=== PATIENT | male | born 1980 | race Caucasian/White ===

== ENCOUNTER 2017-10-02 15:35 | Emergency (ER) | payer MEDICAID, OTHER ==
[~2017-10-02] VITALS: Ht 175.3 cm; Wt 104.0 kg
[~2017-10-02 15:35] MED LIST: CYCL-1 PO
[2017-10-02 16:16] VITALS: BP 133/84
[2017-10-02] MEDS ORDERED: HYDR-569 PO (18:05)
== END 2017-10-02 18:25 | disposition home or self-care (01) ==
LOC: ER 15:35
DX: S63.501A Unspecified sprain of right wrist, initial encounter (principal); G89.29 Other chronic pain; F17.200 Nicotine dependence, unspecified, uncomplicated; Z79.899 Other long term (current) drug therapy; X50.1XXA Overexertion from prolonged static or awkward postures, initial encounter; Y93.89 Activity, other specified; Y92.89 Other specified places as the place of occurrence of the external cause; Y99.8 Other external cause status
CPT/HCPCS: 29125; 73110; 99284

== ENCOUNTER 2018-03-15 09:00 | Emergency (ER) | payer MEDICAID ==
[~2018-03-15] VITALS: Ht 175.3 cm; Wt 106.8 kg
[~2018-03-15 09:00] MED LIST changes: +CLON-529 PO; +HYDR-4383 PO; +LORA0.5T PO
[2018-03-15 10:41] VITALS: BP 128/78
[2018-03-15] MEDS ORDERED: ZOLP10TA5 PO (10:48)
== END 2018-03-15 10:45 | disposition home or self-care (01) ==
LOC: ER 09:01
DX: F11.10 Opioid abuse, uncomplicated (principal); G89.29 Other chronic pain; G47.00 Insomnia, unspecified; M54.9 Dorsalgia, unspecified
CPT/HCPCS: 99283

== ENCOUNTER 2019-11-05 11:27 | Emergency (ER) | payer MEDICAID ==
[~2019-11-05] VITALS: Ht 175.3 cm; Wt 104.9 kg
[~2019-11-05 11:27] MED LIST changes: -LORA0.5T PO
[2019-11-05] MEDS ORDERED: ondansetron/PF 4mg/2ml inj IV ONE (12:40)
[2019-11-05] MEDS ORDERED: pantoprazole 40 MG vial IV ONE (12:40)
[2019-11-05] MEDS ORDERED: normal saline 1000ML IV soln IVB ONE (12:40)
[2019-11-05 13:15] LABS: BASOPHILS % (AUTO) 0.4 % (0-1); EOSINOPHILS # (AUTO) 0.1 X10'3 (0-0.9); HEMATOCRIT 52.2 % (42.0-52.0); HEMOGLOBIN 17.7 g/dl (14.0-17.9); LYMPHOCYTES # (AUTO) 1.7 X10'3 (1.1-4.8); LYMPHOCYTES % (AUTO) 19.8 % (21-51); MEAN CORPUSCULAR HGB CONC 33.9 g/dL (33.0-36.5); MEAN CORPUSCULAR VOLUME 91.5 FL (78-98); MEAN PLATELET VOLUME 8.6 FL (7.4-10.4); MONOCYTES # (AUTO) 0.8 X10'3 (0-0.9); MONOCYTES % (AUTO) 8.7 % (2-12); NEUTROPHILS # (AUTO) 6.1 X10'3 (1.8-7.7); NEUTROPHILS % (AUTO) 70.1 % (42-75); PLATELET COUNT 264 X10'3 (140-440); RED BLOOD COUNT 5.71 X10'6 (4.70-6.10); RED CELL DISTRIBUTION WIDTH 13.1 % (11.5-14.5); WHITE BLOOD COUNT 8.7 X10'3 (4.5-11.0)
[2019-11-05 13:19] LABS: CLARITY,URINE CLEAR (Clear); COLOR,URINE YELLOW (Yellow); GLUCOSE, URINE NEGATIVE (Neg); KETONES,URINE NEGATIVE (Neg); LEUKOCYTE ESTERASE ,URINE NEGATIVE (Neg); NITRITES, URINE NEGATIVE (Neg); OCCULT BLOOD,URINE NEGATIVE (Neg); PH,URINE 6.5 (4.8-8.0); PROTEIN,URINE TRACE mg/dl (Neg); UROBILINOGEN,URINE 0.2 E.U/dL (0.2-1.0)
[2019-11-05 13:20] LABS: UA COLLECTION TYPE VOIDED
[2019-11-05 13:25] LABS: URINE AMPHETAMINE SCREEN NEGATIVE (Neg); URINE BARBITUATE SCREEN NEGATIVE (Neg); URINE BENZODIAZEPINES SCREEN NEGATIVE (Neg); URINE CANNABINOID SCREEN POSITIVE (Neg); URINE COCAINE SCREEN NEGATIVE (Neg); URINE METHADONE SCREEN NEGATIVE (Neg); URINE OPIATE SCREEN NEGATIVE (Neg); URINE PHENCYCLIDINE SCREEN NEGATIVE (Neg)
[2019-11-05 13:29] LABS: SQUAMOUS EPITHELIAL CELL,UR FEW /LPF (FEW)
[2019-11-05 13:30] LABS: PARTIAL THROMBOPLASTIN TIME 31 SECONDS (22-32)
[2019-11-05 13:31] LABS: BACTERIA,URINE FEW /HPF (Neg); RBC,URINE 0-2 /HPF (0-2); WBC,URINE 0-4 /HPF (0-4)
[2019-11-05 13:35] LABS: ALANINE AMINOTRANSFERASE 61 U/L (12-78); ALKALINE PHOSPHATASE 59 IU/L (46-116); ANION GAP 5 (8-16); ASPARTATE AMINO TRANSFERASE 33 U/L (10-37); BILIRUBIN,TOTAL 0.3 MG/DL (0.1-1.0); BLOOD UREA NITROGEN 16 MG/DL (7-18); BUN/CREATININE RATIO 17.2 (5.4-32.0); CALCIUM 9.1 MG/DL (8.5-10.1); CHLORIDE 103 MMOL/L (99-107); CREATININE 0.93 MG/DL (0.60-1.10); GLUCOSE 101 MG/DL (70-104); LIPASE 237 U/L (73-393); MAGNESIUM 1.6 MG/DL (1.5-2.4); PHOSPHORUS 2.8 MG/DL (2.3-4.5); POTASSIUM 4.1 MMOL/L (3.5-5.1); SODIUM 136 MMOL/L (135-145); TOTAL PROTEIN 7.9 G/DL (6.4-8.2); eGFR > 90 ML/MIN
[2019-11-05 13:36] LABS: ETHANOL < 0.010 GM/DL (0.0-0.010)
[2019-11-05] MEDS ORDERED: PANT-47 PO (14:28)
[2019-11-05] MEDS ORDERED: FLUT16SP2 BOTHNARES (14:28)
[2019-11-05 14:35] VITALS: BP 133/64
== END 2019-11-05 14:36 | disposition home or self-care (01) ==
LOC: ER 11:28
DX: K21.9 Gastro-esophageal reflux disease without esophagitis (principal); G89.29 Other chronic pain; F17.210 Nicotine dependence, cigarettes, uncomplicated; Z79.899 Other long term (current) drug therapy
CPT/HCPCS: 36415; 80053; 80305; 80320; 81001; 83690; 83735; 84100; 85025; 85610; 85730; 93005; 96361; 96374; 96375; 99284; C9113; J2405; J7030

== ENCOUNTER 2021-02-01 21:43 | Emergency (ER) | payer MEDICAID, OTHER ==
[~2021-02-01] VITALS: Ht 175.3 cm; Wt 104.5 kg
[~2021-02-01 21:43] MED LIST changes: +FLUT16SP2 BOTHNARES; +PANT-47 PO
[2021-02-01 22:00] VITALS: BP 162/93
[2021-02-02] MEDS ORDERED: normal saline 1000ml 1,000 ML IV ONE (01:45)
[2021-02-02 01:48] LABS: BASOPHILS # (AUTO) 0.1 X10'3 (0-0.2); BASOPHILS % (AUTO) 0.6 % (0-1); EOSINOPHILS # (AUTO) 0.1 X10'3 (0-0.9); EOSINOPHILS % (AUTO) 0.8 % (0-6); HEMATOCRIT 52.4 % (42.0-52.0); LYMPHOCYTES # (AUTO) 1.7 X10'3 (1.1-4.8); LYMPHOCYTES % (AUTO) 16.1 % (21-51); MEAN CORPUSCULAR HEMOGLOBIN 31.8 PG (27.0-31.0); MEAN CORPUSCULAR HGB CONC 34.4 g/dL (33.0-36.5); MEAN CORPUSCULAR VOLUME 92.5 FL (78-98); MONOCYTES % (AUTO) 9.5 % (2-12); NEUTROPHILS # (AUTO) 7.9 X10'3 (1.8-7.7); PLATELET COUNT 269 X10'3 (140-440); RED BLOOD COUNT 5.66 X10'6 (4.70-6.10); WHITE BLOOD COUNT 10.8 X10'3 (4.5-11.0)
[2021-02-02 02:01] LABS: ALANINE AMINOTRANSFERASE 131 U/L (12-78); ALKALINE PHOSPHATASE 75 IU/L (46-116); ANION GAP 12 (8-16); ASPARTATE AMINO TRANSFERASE 104 U/L (10-37); BILIRUBIN,TOTAL 0.7 MG/DL (0.1-1.0); BLOOD UREA NITROGEN 16 MG/DL (7-18); BUN/CREATININE RATIO 18.2 (5.4-32.0); CALCIUM 9.3 MG/DL (8.5-10.1); CHLORIDE 103 MMOL/L (99-107); CREATININE 0.88 MG/DL (0.60-1.10); GLUCOSE 102 MG/DL (70-104); POTASSIUM 3.9 MMOL/L (3.5-5.1); SODIUM 141 MMOL/L (135-145); TOTAL CARBON DIOXIDE 25.8 MMOL/L (24-32); TOTAL PROTEIN 7.9 G/DL (6.4-8.2); eGFR > 90 ML/MIN
[2021-02-02] MEDS ORDERED: SULF1TAB45 PO (02:59)
== END 2021-02-02 03:06 | disposition home or self-care (01) ==
LOC: ER 21:44
DX: R53.81 Other malaise (principal); Z20.822 Contact with and (suspected) exposure to COVID-19; R07.89 Other chest pain; R43.8 Other disturbances of smell and taste; R19.7 Diarrhea, unspecified; R53.1 Weakness; R11.0 Nausea; G89.29 Other chronic pain; F12.90 Cannabis use, unspecified, uncomplicated; F11.90 Opioid use, unspecified, uncomplicated; Z72.89 Other problems related to lifestyle; Z79.899 Other long term (current) drug therapy; Z79.2 Long term (current) use of antibiotics
CPT/HCPCS: 36415; 71045; 80053; 83880; 84484; 85025; 87635; 93005; 99285; C9803; J7030

== ENCOUNTER 2021-03-31 15:32 | Emergency (ER) | payer MEDICAID ==
[~2021-03-31] VITALS: Ht 175.3 cm; Wt 96.8 kg
[2021-03-31] MEDS ORDERED: folic acid 1mg tablet PO ONE (16:55)
[2021-03-31] MEDS ORDERED: ondansetron 4mg rapidly disintigrating tab PO ONE (16:55)
[2021-03-31] MEDS ORDERED: thiamine 100mg tablet PO ONE (16:55)
[2021-03-31] MEDS ORDERED: magnesium oxide 400mg tablet PO ONE (16:55)
[2021-03-31] MEDS ORDERED: diazepam 5mg tablet PO ONE (16:55)
[2021-03-31 17:00] LABS: ALANINE AMINOTRANSFERASE 165 U/L (12-78); ALBUMIN 3.7 G/DL (3.4-5.0); ALBUMIN/GLOBULIN RATIO 0.9 (1.1-1.5); ALKALINE PHOSPHATASE 62 IU/L (46-116); AMYLASE 39 U/L (25-115); ANION GAP 20 (8-16); ASPARTATE AMINO TRANSFERASE 192 U/L (10-37); BASOPHILS % (AUTO) 0.3 % (0-1); BILIRUBIN,TOTAL 0.7 MG/DL (0.1-1.0); BLOOD UREA NITROGEN 11 MG/DL (7-18); BUN/CREATININE RATIO 14.1 (5.4-32.0); CALCIUM 8.7 MG/DL (8.5-10.1); CHLORIDE 97 MMOL/L (99-107); CREATININE 0.78 MG/DL (0.60-1.10); EOSINOPHILS # (AUTO) 0.1 X10'3 (0-0.9); EOSINOPHILS % (AUTO) 0.6 % (0-6); GLUCOSE 73 MG/DL (70-104); HEMATOCRIT 54.2 % (42.0-52.0); LIPASE 216 U/L (73-393); LYMPHOCYTES # (AUTO) 0.9 X10'3 (1.1-4.8); LYMPHOCYTES % (AUTO) 9.4 % (21-51); MEAN CORPUSCULAR HEMOGLOBIN 32.2 PG (27.0-31.0); MEAN CORPUSCULAR HGB CONC 33.9 g/dL (33.0-36.5); MEAN PLATELET VOLUME 9.2 FL (7.4-10.4); MONOCYTES # (AUTO) 0.6 X10'3 (0-0.9); MONOCYTES % (AUTO) 6.6 % (2-12); NEUTROPHILS % (AUTO) 83.1 % (42-75); PLATELET COUNT 281 X10'3 (140-440); POTASSIUM 3.8 MMOL/L (3.5-5.1); RED BLOOD COUNT 5.71 X10'6 (4.70-6.10); RED CELL DISTRIBUTION WIDTH 14.7 % (11.5-14.5); SODIUM 135 MMOL/L (135-145); TOTAL CARBON DIOXIDE 18.4 MMOL/L (24-32); TOTAL PROTEIN 7.7 G/DL (6.4-8.2); WHITE BLOOD COUNT 9.7 X10'3 (4.5-11.0); eGFR > 90 ML/MIN
[2021-03-31 17:02] LABS: HEMOGLOBIN 18.4 g/dl (14.0-17.9)
[2021-03-31] MEDS ORDERED: ondansetron/PF 4mg/2ml inj IV ONE (17:25)
[2021-03-31 17:36] LABS: ETHANOL < 0.010 GM/DL (0.0-0.010); MAGNESIUM 1.6 MG/DL (1.5-2.4)
[2021-03-31] MEDS ORDERED: normal saline 1000ML IV soln IVB ONE (17:45)
[2021-03-31] MEDS ORDERED: dextrose 5%-normal saline 1,000 ML IV ONE (17:45)
[2021-03-31 17:57] LABS: CLARITY,URINE CLEAR (Clear); COLOR,URINE YELLOW (Yellow); GLUCOSE, URINE NEGATIVE (Neg); KETONES,URINE >=80 mg/dl (Neg); LEUKOCYTE ESTERASE ,URINE NEGATIVE (Neg); NITRITES, URINE NEGATIVE (Neg); OCCULT BLOOD,URINE TRACE-INTACT (Neg); PH,URINE 5.5 (4.8-8.0); PROTEIN,URINE 30 mg/dl (Neg); UROBILINOGEN,URINE 0.2 E.U/dL (0.2-1.0)
[2021-03-31 18:02] LABS: UA COLLECTION TYPE NON-SPECIFIED
[2021-03-31 18:04] LABS: MUCUS STRANDS FEW /LPF (Neg); SQUAMOUS EPITHELIAL CELL,UR FEW /LPF (FEW)
[2021-03-31 18:06] LABS: BACTERIA,URINE NONE SEEN /HPF (Neg); RBC,URINE 0-2 /HPF (0-2); WBC,URINE 0-4 /HPF (0-4)
[2021-03-31 18:09] LABS: URINE AMPHETAMINE SCREEN NEGATIVE (Neg); URINE BARBITUATE SCREEN NEGATIVE (Neg); URINE BENZODIAZEPINES SCREEN NEGATIVE (Neg); URINE CANNABINOID SCREEN POSITIVE (Neg); URINE COCAINE SCREEN NEGATIVE (Neg); URINE METHADONE SCREEN NEGATIVE (Neg); URINE OPIATE SCREEN POSITIVE (Neg); URINE PHENCYCLIDINE SCREEN NEGATIVE (Neg)
[2021-03-31] MEDS ORDERED: CHLO25CA10 PO (19:42)
[2021-03-31] MEDS ORDERED: PROM12.512 PO (19:42)
[2021-03-31 20:16] VITALS: BP 182/116
== END 2021-03-31 20:18 | disposition home or self-care (01) ==
LOC: ER 15:33
DX: K29.20 Alcoholic gastritis without bleeding (principal); G89.29 Other chronic pain; M54.9 Dorsalgia, unspecified; F17.210 Nicotine dependence, cigarettes, uncomplicated; F12.10 Cannabis abuse, uncomplicated
CPT/HCPCS: 36415; 80053; 80305; 80320; 81001; 82150; 83690; 83735; 84484; 85025; 93005; 96361; 96374; 99284; J2405; J7030

== ENCOUNTER 2021-04-21 12:17 | Emergency (ER) | payer MEDICAID ==
[~2021-04-21] VITALS: Ht 175.3 cm; Wt 105.0 kg
[~2021-04-21 12:17] MED LIST changes: +CHLO25CA10 PO; +PROM12.512 PO
[2021-04-21 12:55] LABS: BASOPHILS % (AUTO) 0.6 % (0-1); EOSINOPHILS # (AUTO) 0.4 X10'3 (0-0.9); EOSINOPHILS % (AUTO) 5.4 % (0-6); HEMATOCRIT 53.2 % (42.0-52.0); HEMOGLOBIN 17.9 g/dl (14.0-17.9); LYMPHOCYTES # (AUTO) 1.7 X10'3 (1.1-4.8); LYMPHOCYTES % (AUTO) 22.6 % (21-51); MEAN CORPUSCULAR HEMOGLOBIN 32.2 PG (27.0-31.0); MEAN CORPUSCULAR HGB CONC 33.6 g/dL (33.0-36.5); MEAN CORPUSCULAR VOLUME 95.8 FL (78-98); MEAN PLATELET VOLUME 9.2 FL (7.4-10.4); MONOCYTES # (AUTO) 0.6 X10'3 (0-0.9); MONOCYTES % (AUTO) 8.7 % (2-12); NEUTROPHILS # (AUTO) 4.7 X10'3 (1.8-7.7); NEUTROPHILS % (AUTO) 62.7 % (42-75); PLATELET COUNT 314 X10'3 (140-440); RED BLOOD COUNT 5.55 X10'6 (4.70-6.10); RED CELL DISTRIBUTION WIDTH 14.3 % (11.5-14.5); WHITE BLOOD COUNT 7.5 X10'3 (4.5-11.0)
[2021-04-21 13:12] LABS: CLARITY,URINE CLEAR (Clear); COLOR,URINE YELLOW (Yellow); GLUCOSE, URINE NEGATIVE (Neg); KETONES,URINE 15 mg/dl (Neg); LEUKOCYTE ESTERASE ,URINE NEGATIVE (Neg); NITRITES, URINE NEGATIVE (Neg); OCCULT BLOOD,URINE NEGATIVE (Neg); PH,URINE 6.5 (4.8-8.0); PROTEIN,URINE TRACE mg/dl (Neg); UROBILINOGEN,URINE 0.2 E.U/dL (0.2-1.0)
[2021-04-21 13:17] LABS: UA COLLECTION TYPE VOIDED
[2021-04-21 13:18] LABS: MUCUS STRANDS MODERATE /LPF (Neg); SQUAMOUS EPITHELIAL CELL,UR FEW /LPF (FEW)
[2021-04-21 13:20] LABS: ALANINE AMINOTRANSFERASE 49 U/L (12-78); ALBUMIN 3.3 G/DL (3.4-5.0); ALBUMIN/GLOBULIN RATIO 0.8 (1.1-1.5); ALKALINE PHOSPHATASE 67 IU/L (46-116); ASPARTATE AMINO TRANSFERASE 44 U/L (10-37); BILIRUBIN,TOTAL 0.3 MG/DL (0.1-1.0); BLOOD UREA NITROGEN 11 MG/DL (7-18); BUN/CREATININE RATIO 19.6 (5.4-32.0); CALCIUM 8.8 MG/DL (8.5-10.1); CREATININE 0.56 MG/DL (0.60-1.10); GLUCOSE 100 MG/DL (70-104); LIPASE 172 U/L (73-393); TOTAL CARBON DIOXIDE 24.1 MMOL/L (24-32); TOTAL PROTEIN 7.6 G/DL (6.4-8.2); eGFR > 90 ML/MIN
[2021-04-21 13:22] LABS: BACTERIA,URINE FEW /HPF (Neg); WBC,URINE 0-4 /HPF (0-4)
[2021-04-21] MEDS ORDERED: ondansetron 4mg rapidly disintigrating tab PO ONE (13:35)
[2021-04-21] MEDS ORDERED: morphine 5 MG/ML injection IM ONE (13:35)
[2021-04-21] MEDS ORDERED: normal saline 1000ML IV soln IVB ONE (14:10)
[2021-04-21] MEDS ORDERED: morphine 4 MG/ML inj SYRINge IV ONE (14:20)
[2021-04-21] MEDS ORDERED: famotidine/PF 10 mg/ml inj IV ONE (14:25)
[2021-04-21] MEDS ORDERED: OMEP40CA21 PO (15:37)
[2021-04-21 16:44] VITALS: BP 147/97
[2021-04-21] MEDS ORDERED: famotidine/PF IV inj 20 MG in normal saline 100ml IV soln 100 ML IV SCH (20:00)
[2021-04-22 08:54] LABS: POTASSIUM 4.3 MMOL/L (3.3-5.1)
[2021-04-22 15:30] LABS: ANION GAP 9 (8-16); CHLORIDE 108 MMOL/L (99-107); POTASSIUM 4.3 MMOL/L (3.5-5.1); SODIUM 141 MMOL/L (135-145)
== END 2021-04-21 16:53 | disposition home or self-care (01) ==
LOC: ER 12:18
DX: K29.20 Alcoholic gastritis without bleeding (principal); R10.84 Generalized abdominal pain; R11.0 Nausea; F12.90 Cannabis use, unspecified, uncomplicated; Z72.89 Other problems related to lifestyle; Z79.899 Other long term (current) drug therapy
CPT/HCPCS: 36415; 76700; 80051; 80053; 81001; 83690; 85025; 96361; 96374; 96375; 99284; J2270; J3490; J7030

== ENCOUNTER 2021-11-06 18:38 | Emergency (ER) | payer MEDICAID ==
[~2021-11-06] VITALS: Ht 175.3 cm; Wt 92.7 kg
[2021-11-06 20:48] VITALS: BP 149/91
[2021-11-06] MEDS ORDERED: OMEP20CA16 PO (20:49)
[2021-11-06 21:51] LABS: BASOPHILS % (AUTO) 0.5 % (0-1); EOSINOPHILS # (AUTO) 0.1 X10'3 (0-0.9); EOSINOPHILS % (AUTO) 1.6 % (0-6); LYMPHOCYTES % (AUTO) 22.8 % (21-51); MEAN CORPUSCULAR HEMOGLOBIN 32.9 PG (27.0-31.0); MEAN CORPUSCULAR HGB CONC 34.1 g/dL (33.0-36.5); MEAN CORPUSCULAR VOLUME 96.5 FL (78-98); MONOCYTES # (AUTO) 1.3 X10'3 (0-0.9); MONOCYTES % (AUTO) 14.8 % (2-12); NEUTROPHILS # (AUTO) 5.2 X10'3 (1.8-7.7); NEUTROPHILS % (AUTO) 60.3 % (42-75); PLATELET COUNT 272 X10'3 (140-440); RED BLOOD COUNT 4.87 X10'6 (4.70-6.10); RED CELL DISTRIBUTION WIDTH 13.8 % (11.5-14.5); WHITE BLOOD COUNT 8.7 X10'3 (4.5-11.0)
[2021-11-06 22:07] LABS: ALANINE AMINOTRANSFERASE 46 U/L (12-78); ALBUMIN 3.6 G/DL (3.4-5.0); ALBUMIN/GLOBULIN RATIO 1.1 (1.1-1.5); ALKALINE PHOSPHATASE 47 IU/L (46-116); ANION GAP 6 (8-16); ASPARTATE AMINO TRANSFERASE 55 U/L (10-37); BILIRUBIN,TOTAL 0.4 MG/DL (0.1-1.0); BLOOD UREA NITROGEN 9 MG/DL (7-18); BUN/CREATININE RATIO 11.4 (5.4-32.0); CALCIUM 8.4 MG/DL (8.5-10.1); CHLORIDE 104 MMOL/L (99-107); CREATININE 0.79 MG/DL (0.60-1.10); GLUCOSE 79 MG/DL (70-104); POTASSIUM 4.2 MMOL/L (3.5-5.1); SODIUM 139 MMOL/L (135-145); TOTAL CARBON DIOXIDE 28.9 MMOL/L (24-32); TOTAL PROTEIN 6.9 G/DL (6.4-8.2); eGFR > 90 ML/MIN
[2021-11-06 22:09] LABS: CLARITY,URINE CLEAR (Clear); COLOR,URINE YELLOW (Yellow); GLUCOSE, URINE NEGATIVE (Neg); KETONES,URINE 15 mg/dl (Neg); LEUKOCYTE ESTERASE ,URINE NEGATIVE (Neg); NITRITES, URINE NEGATIVE (Neg); OCCULT BLOOD,URINE NEGATIVE (Neg); PROTEIN,URINE NEGATIVE (Neg); UA COLLECTION TYPE NON-SPECIFIED; UROBILINOGEN,URINE 0.2 E.U/dL (0.2-1.0)
[2021-11-06 22:14] LABS: URINE AMPHETAMINE SCREEN NEGATIVE (Neg); URINE BARBITUATE SCREEN NEGATIVE (Neg); URINE BENZODIAZEPINES SCREEN NEGATIVE (Neg); URINE CANNABINOID SCREEN POSITIVE (Neg); URINE COCAINE SCREEN NEGATIVE (Neg); URINE METHADONE SCREEN NEGATIVE (Neg); URINE OPIATE SCREEN POSITIVE (Neg); URINE PHENCYCLIDINE SCREEN NEGATIVE (Neg)
[2021-11-06 22:16] LABS: ETHANOL < 0.010 GM/DL (0.0-0.010)
== END 2021-11-06 22:50 | disposition home or self-care (01) ==
LOC: ER 18:38
DX: F10.10 Alcohol abuse, uncomplicated (principal); R53.83 Other fatigue; R10.9 Unspecified abdominal pain; F17.200 Nicotine dependence, unspecified, uncomplicated; Y90.9 Presence of alcohol in blood, level not specified
CPT/HCPCS: 36415; 71045; 74176; 80053; 80305; 80320; 81003; 83735; 85025; 93005; 99285

== ENCOUNTER 2021-11-08 14:53 | Emergency (ER) | payer MEDICAID ==
[~2021-11-08] VITALS: Ht 175.3 cm; Wt 92.3 kg
[~2021-11-08 14:53] MED LIST changes: -CHLO25CA10 PO; -CLON-529 PO; -CYCL-1 PO; -FLUT16SP2 BOTHNARES; -HYDR-4383 PO; +OMEP20CA16 PO; -PANT-47 PO; -PROM12.512 PO
[2021-11-08 15:38] VITALS: BP 151/93
--- NOTE | 2021-11-08 16:10 | NUR ---
PT DENIES THOUGHTS OF HARMING SELF OR OTHERS
[2021-11-08] MEDS ORDERED: ALBU8.5H17 IH ×2 (20:18)
[2021-11-08] MEDS ORDERED: PRED20TA PO ×2 (20:18)
[2021-11-08] MEDS ORDERED: LORazepam 1 MG tablet PO ONE (21:10)
[2021-11-08] MEDS ORDERED: LORA-269 PO (21:18)
== END 2021-11-08 21:37 | disposition home or self-care (01) ==
LOC: ER 14:54
DX: F41.9 Anxiety disorder, unspecified (principal); G89.29 Other chronic pain; M54.9 Dorsalgia, unspecified; F12.10 Cannabis abuse, uncomplicated; Z79.899 Other long term (current) drug therapy
CPT/HCPCS: 99283

== ENCOUNTER 2024-07-13 | Emergency (ER) | payer MEDICAID ==
[~2024-07-13] VITALS: Ht 175.3 cm; Wt 88.0 kg
[~2024-07-13] MED LIST changes: +LORA-269 PO
[2024-07-13 00:25] VITALS: TEMP 97.7
[2024-07-13 04:15] VITALS: BP 104/61; PULSE 77; O2SAT 96
[2024-07-13] MEDS ORDERED: HYDR-3965 PO (04:59)
[2024-07-13 05:01] VITALS: RESP 15
[2024-07-13] MEDS: HYDROcodone/acetaminophen 5mg/325mg tablet PO ONE (05:01)
[2024-07-13] MEDS: ketorolac trometh 15mg/ml vial 15 MG/ML ML IV ONE (05:01)
--- NOTE | 2024-07-13 05:01 | Physician Documentation ---
History of Present Illness ~ Chief Complaint: Back Pain Stated Complaint: BACK PAIN Time Seen by MD: 04:27 Primary Medical Doctor: edwina walk-in Mode of Arrival: EMS HPI Patient presents to the emergency room for evaluation of acute on chronic back pain. Patient has history of back problems including compression fractures. He has had imaging performed this last month which shows that he does have worsening compression fracture. He states he has been referred to surgery as we ll as pain specialist however over the past couple of days his pain has worsened and he is sleeping on the floor and generally being miserable. No fevers no bladder or bowel incontinence Medication Reconciliation Allergies: Coded Allergies: No Known Allergies (Unverified , 11/08/21) Scheduled Lorazepam (Ativan), 1 TAB PO Q8H Omeprazole (Omeprazole), 1 CAP PO DAILY, (Reported) Past Medical History Past Medical History: Chronic Back Pain Past Surgical History: noncontributory Alcohol Use: Alcoholic Drug Use: marijuana Lives In: Home Occupation: employed Review of Systems ROS All review of systems negative except as per HPI Physical Exam Physical Exam Vital Signs: Temperature: 97.7, Source: Oral, Heart Rate: 77, Respiratory Rate: 15, BP: 104/61, Pulse Oximetry: 96, Weight: 88.000 Oxygen Flow Rate: 0 Physical Exam General: Patient is awake, alert, oriented x4 in no acute distress Head: Normocephalic and atraumatic. Eyes: Conjunctival normal. EOMI. PERRL. ENT: Mucous membranes moist. Neck: Supple, trachea is midline. Chest: Clear to auscultation bilaterally without rales, rhonchi, or wheezes. There is no accessory muscle use or retractions. Cardiac: RRR without murmurs, gallops, or rubs. Back: Mid back tenderness to palpation with no step-offs. Progress Results/Orders Results/Orders Orders - CHIDI TREVINO MD Ketorolac Trometh 15mg/Ml Vial (Toradol (07/13/24 04:55) Vital Signs 07/13/24 07/13/24 07/13/24 07/13/24 00:16 00:25 01:05 01:30 Temp 97.7 97.7 Pulse 91 95 82 Resp 17 14 13 15 B/P (MAP) 110/63 110/63 (79) 100/55 (70) Pulse Ox 95 94 96 O2 Flow Rate 0 0 0 07/13/24 07/13/24 07/13/24 02:35 03:30 04:15 Pulse 90 84 77 Resp 14 16 15 B/P (MAP) 108/61 (77) 101/65 (77) 104/61 (75) Pulse Ox 94 94 96 O2 Flow Rate 0 0 0 Medical Decision Making Findings Patient presents to the emergency room with acute on chronic back pain. D ifferentials include but are not limited to worsening compression fracture, muscle spasm, kidney stone, aortic pathology, spinal abscess. No fevers and given patient's history do not feel he requires imaging of his spine. We will treat him for acute on chronic back pain. Departure Disposition: HOME / SELF CARE / HOMELESS Impression: Primary Impression: Back problem Condition: Stable Discharge Instructions: Acute Back Pain, Adult Additional Instructions: Continue to follow up with pain management doctors well as your surgical referral. Referrals: NO PRIMARY CARE PROVIDER (PCP) Prescriptions Hydrocodone Bit/Acetaminophen 5/325 MG ([place] 5/325 MG) 5 Mg/325 Mg Tablet 1 TAB PO Q4-6 hours PRN for pain, #10 TAB Prov: CHIDI TREVINO MD 07/13/24 Education Educated: Patient Educated regarding: diagnosis, treatment, need for follow up Signature Scribe Signature: No scribe Attestation: The note accurately reflects work and decisions made by me.Chidi Trevino MD 07/13/24 05:00 CHIDI TREVINO MD July 13, 2024 05:00
== END 2024-07-13 05:09 | disposition home or self-care (01) ==
LOC: ER
DX: G89.29 Other chronic pain (principal); M54.9 Dorsalgia, unspecified; F12.90 Cannabis use, unspecified, uncomplicated; F10.90 Alcohol use, unspecified, uncomplicated; Z79.899 Other long term (current) drug therapy; Y90.9 Presence of alcohol in blood, level not specified
CPT/HCPCS: 96374; 99285; J1885